=== PATIENT | male | born 1960 | race Caucasian/White ===

== ENCOUNTER → 2017-11-18 | Outpatient (CLI) | payer OTHER ==
--- NOTE | 2017-11-18 15:00 | Diagnostic Imaging Report ---
INDICATION: Mid left knee pain x1 week. COMPARISON: None. FINDINGS: Three radiographic views of the left knee were obtained and show no evidence of acute fracture or dislocation. Osseous structures are intact. Joint spaces are maintained. There is no large joint effusion. No unexpected radiopaque foreign bodies are seen. Small degenerative osteophytes are noted. IMPRESSION: 1. Small degenerative osteophytes of the left knee. Otherwise, unremarkable radiographic exam of the left knee. Dictated by: Dictated on workstation # [id number]
== END ==
LOC: RAD 13:58
PROVIDERS: ATTEND Internal Medicine
DX: M25.762 Osteophyte, left knee (principal)
CPT/HCPCS: 73562

== ENCOUNTER → 2018-07-06 | Outpatient (CLI) | payer OTHER ==
[2018-07-07 22:11] LABS: AMPHETAMINES URINE QUAL DS Negative; BARBITURATES URINE QUAL DS Negative; BENZODIAZEPINE URINE QUAL DS Negative
== END ==
LOC: LAB 16:14
PROVIDERS: ATTEND Nurse Practitioner
DX: Z51.81 Encounter for therapeutic drug level monitoring (principal); Z79.891 Long term (current) use of opiate analgesic
CPT/HCPCS: 36415; 80307

== ENCOUNTER → 2018-10-19 | Outpatient (CLI) | payer OTHER ==
[~2018-10-19] MED LIST: GADOBUTROL 10 MMOL/10 ML (GADAVIST) VIAL IV ONE
[2018-10-19 09:56] LABS: BUN/CREATININE RATIO 18; CREATININE SERUM 0.85 MG/DL (0.60-1.30); GFR ESTIMATED > 60
--- NOTE | 2018-10-19 11:40 | Diagnostic Imaging Report ---
PROCEDURE: MRI lumbar spine with and without contrast. TECHNIQUE: Multiplanar, multisequence MRI of the lumbar spine was performed with and without contrast. INDICATION: Back pain and bilateral leg pain. COMPARISON: There are no prior studies available for comparison. FINDINGS: The T2 sagittal images show narrowing and desiccation of the disc at the L5-S1 disc space. Furthermore, there is a disc bulge eccentric to the right at this level. The disc effaces the right ventral aspect but does not produce spinal stenosis. However, there is narrowing of the neuroforamen on the right due to degenerative disc and bony disease. There is moderate narrowing of the neuroforamen on the left at this level as well. At the L4-L5 level, there is a slight disc bulge centrally. The disc flattens the ventral aspect of the thecal sac and narrows the AP diameter to approximately 8.6 mm. The thecal sac itself is relatively slender. There is mild narrowing of the neuroforamen bilaterally at this level. At the L3-L4 level, there is also slight disc bulge centrally. The AP diameter of the thecal sac measures 10.9 mm. There is mild narrowing of the neuroforamen bilaterally at this level. At L1-L2 and L2-L3, there is no evidence for spinal stenosis or nerve root encroachment. There is no abnormal signal arising from the cord or other vertebral bodies to indicate an acute abnormality. There is no sign of a paraspinal mass. IMPRESSION: 1. There is degenerative disc and bony disease at L5-S1. While there is no evidence for central stenosis at this level, there is narrowing of the neuroforamen on the right and there may be encroachment of the exiting right nerve root at this level. There is also moderate narrowing of the neuroforamen on the left. 2. There is borderline trefoil stenosis at L4-L5. The narrowing of the AP diameter of the thecal sac is in part due to the relatively slender size of the thecal sac. There is mild narrowing of the neuroforamen bilaterally at this level. 3. There is no acute bony abnormality noted and there is no sign of a cord lesion. Dictated by: Dictated on workstation # [id number]
== END ==
LOC: RAD 08:37
PROVIDERS: ATTEND Student in an Organized Health Care Education/Training Program
DX: M51.16 Intervertebral disc disorders with radiculopathy, lumbar region (principal); M99.73 Connective tissue and disc stenosis of intervertebral foramina of lumbar region; M89.9 Disorder of bone, unspecified
CPT/HCPCS: 36415; 72158; 82565; 84520

== ENCOUNTER 2020-02-01 17:30 | Inpatient (IN) | payer BC, OTHER ==
[2020-02-01] VITALS (8 sets, daily range): BP systolic 114–141; BP diastolic 77–93
[~2020-02-01] VITALS: Ht 182 cm; Wt 96.5 kg
[2020-02-01] MEDS ORDERED: ASPIRIN 81 MG CHEW (CHILDREN'S ASA) PO ONE (17:45)
[2020-02-01 17:48] LABS: BASOPHILS % (AUTO) 0 % (0-10); EOSINOPHILS # (AUTO) 0.4 10^3/uL (0.0-0.3); EOSINOPHILS % (AUTO) 4 % (0-10); HEMATOCRIT 48 % (40-54); HEMOGLOBIN 16.4 G/DL (13.3-17.7); LYMPHOCYTES # (AUTO) 2.3 X 10^3 (1.0-4.0); LYMPHOCYTES % (AUTO) 25 % (12-44); MEAN CORPUSCULAR HEMOGLOBIN 30 PG (25-34); MEAN CORPUSCULAR HGB CONC 35 G/DL (32-36); MEAN CORPUSCULAR VOLUME 88 FL (80-99); MONOCYTES # (AUTO) 0.8 X 10^3 (0.0-1.0); MONOCYTES % (AUTO) 9 % (0-12); NEUTROPHILS # (AUTO) 5.8 X 10^3 (1.8-7.8); NEUTROPHILS % (AUTO) 62 % (42-75); PLATELET COUNT 220 10^3/uL (130-400); WHITE BLOOD COUNT 9.4 10^3/uL (4.3-11.0)
--- NOTE | 2020-02-01 17:53 | ED Chest Pain ---
General Chief Complaint: Chest Pain Stated Complaint: CHEST PAIN Nursing Triage Note: CHEST PAIN THAT RADIATES TO BILAT ARMS X3 DAYS. Nursing Sepsis Screen: No Definite Risk History of Present Illness Date Seen by Provider: Feb 01, 2020 Time Seen by Provider: 17:30 Initial Comments 59 year old male reports having mid sternal chest pain that began on the afternoon of 01/30/20. He had diaphoresis initially, none today. The pain has been intermittent, since then. No nausea or vomiting. No previous history of CAD or DM. No family history of CAD, but mother was Type 1 DM. He took 2 ASA 81 mg this afternoon when the pain returned. His only medication is Lisinopril, he has not taken it today, takes it every evening. He rates the pain as a 2/10 currently, but when it is bad, he has radiation to both shoulders and arms to fingers. 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 NTG SL WIRE MILL OPERATOR: No Associated Symptoms: diaphoresis; No heartburn, No nausea/vomiting, No shortness of breath Allergies and Home Medications Allergies Coded Allergies: No Known Drug Allergies (Unverified , 10/19/18) Patient Home Medication List Home Medication List Reviewed: Yes Review of Systems Review of Systems Constitutional: see HPI, weakness Cardiovascular: See HPI, Chest Pain Gastrointestinal: No Symptoms Reported, See HPI; Denies Nausea Skin: no symptoms reported, see HPI All Other Systems Reviewed Negative Unless Noted: Yes Past Wkmgbtn-Vfxede-Easmhr Hx Past Med/Social Hx: Reviewed Nursing Past Med/Soc Hx Patient Social History Alcohol Use: Denies Use Recreational Drug Use: No Smoking Status: Current Everyday Smoker Recent Foreign Travel: No Contact w/Someone Who Travel: No Recent Infectious Disease Expo: No Recent Hopitalizations: No Seasonal Allergies Seasonal Allergies: No Past Medical History Respiratory: No Cardiac: Yes Hypertension Neurological: No Gastrointestinal: No Musculoskeletal: No Endocrine: No HEENT: No Cancer: No Integumentary: No Physical Exam Vital Signs Vital Signs - First Documented 02/01/20 17:30 O2 Flow Rate 2.00 Capillary Refill : Less Than 3 Seconds Height, Weight, BMI Height: '" Weight: lbs. oz. kg; 29.00 BMI Method: General Appearance: Anxious, Mild Distress HEENT: PERRL/EOMI, TMs Normal, Normal ENT Inspection, Pharynx Normal Neck: Full Range of Motion, Normal Inspection, Non Tender, Supple Respiratory: Chest Non Tender, Lungs Clear, Normal Breath Sounds Cardiovascular: Regular Rate, Rhythm, No Edema, No Murmur, Normal Peripheral Pulses Gastrointestinal: Normal Bowel Sounds, Non Tender, Soft Extremity: Normal Capillary Refill, Normal Inspection, Normal Range of Motion, Non Tender Neurologic/Psychiatric: Alert, Oriented x3, No Motor/Sensory Deficits, Normal Mood/Affect Skin: Normal Color, Warm/Dry, Erythema (face) Progress/Results/Core Measures Results/Orders Lab Results Laboratory Tests Test 02/01/20 17:40 02/01/20 18:00 Range/Units White Blood Count 9.4 4.3-11.0 10^3/uL Red Blood Count 5.40 4.35-5.85 10^6/uL Hemoglobin 16.4 13.3-17.7 G/DL Hematocrit 48 40-54 % Mean Corpuscular Volume 88 80-99 FL Mean Corpuscular Hemoglobin 30 25-34 PG Mean Corpuscular Hemoglobin Concent 35 32-36 G/DL Red Cell Distribution Width 13.0 10.0-14.5 % Platelet Count 220 130-400 10^3/uL Mean Platelet Volume 10.0 7.4-10.4 FL Neutrophils (%) (Auto) 62 42-75 % Lymphocytes (%) (Auto) 25 12-44 % Monocytes (%) (Auto) 9 0-12 % Eosinophils (%) (Auto) 4 0-10 % Basophils (%) (Auto) 0 0-10 % Neutrophils # (Auto) 5.8 1.8-7.8 X 10^3 Lymphocytes # (Auto) 2.3 1.0-4.0 X 10^3 Monocytes # (Auto) 0.8 0.0-1.0 X 10^3 Eosinophils # (Auto) 0.4 H 0.0-0.3 10^3/uL Basophils # (Auto) 0.0 0.0-0.1 10^3/uL Prothrombin Time 15.7 H 12.2-14.7 SEC INR Comment 1.2 0.8-1.4 Activated Partial Thromboplast Time 28 24-35 SEC Sodium Level 138 135-145 MMOL/L Potassium Level 4.0 3.6-5.0 MMOL/L Chloride Level 107 98-107 MMOL/L Carbon Dioxide Level 25 21-32 MMOL/L Anion Gap 6 5-14 MMOL/L Blood Urea Nitrogen 14 7-18 MG/DL Creatinine 0.83 0.60-1.30 MG/DL Estimat Glomerular Filtration Rate > 60 BUN/Creatinine Ratio 17 Glucose Level 118 H 70-105 MG/DL Calcium Level 8.8 8.5-10.1 MG/DL Corrected Calcium 9.0 8.5-10.1 MG/DL Magnesium Level 1.8 1.6-2.4 MG/DL Total Bilirubin 0.2 0.1-1.0 MG/DL Aspartate Amino Transf (AST/SGOT) 32 5-34 U/L Alanine Aminotransferase (ALT/SGPT) 23 0-55 U/L Alkaline Phosphatase 47 40-136 U/L Myoglobin 162.6 H 10.0-92.0 NG/ML Troponin I 2.738 *H <0.028 NG/ML Total Protein 6.0 L 6.4-8.2 GM/DL Albumin 3.8 3.2-4.5 GM/DL My Orders Orders - DALIA REDDING Cbc With Automated Diff (02/01/20 17:34) Magnesium (02/01/20 17:34) Chest 1 View, Ap/Pa Only (02/01/20 17:34) Ekg Tracing (02/01/20 17:34) Comprehensive Metabolic Panel (02/01/20 17:34) Myoglobin Serum (02/01/20 17:34) Protime With Inr (02/01/20 17:34) Partial Thromboplastin Time (02/01/20 17:34) O2 (02/01/20 17:34) Monitor-Rhythm Ecg Trace Only (02/01/20 17:34) Ed Iv/Invasive Line Start (02/01/20 17:34) Troponin I (02/01/20 17:34) Aspirin Chewable Tablet (Baby Aspirin Ch (02/01/20 17:45) Metoprolol Tartrate Injection (Lopressor (02/01/20 18:15) Nitroglycerin 0.4 Mg Btl 25's (Nitrostat (02/01/20 18:15) Nitroglycerin 0.4 Mg Btl 25's (Nitrostat (02/01/20 17:59) Morphine Injection (Morphine Injection (02/01/20 18:17) Morphine Injection (Morphine Injection (02/01/20 18:13) Ns Iv 1000 Ml (Sodium Chloride 0.9%) (02/01/20 18:40) Morphine Injection (Morphine Injection (02/01/20 18:46) Ns Iv 1000 Ml (Sodium Chloride 0.9%) (02/01/20 19:00) Lidocaine 1% Inj 20 Ml (Xylocaine 1% Inj (02/01/20 18:56) Midazolam Injection (Versed Injection) (02/01/20 18:56) Fentanyl Injection (Sublimaze Injection (02/01/20 18:56) Heparin (Data Conversion Developer) (Heparin (Data Conversion Developer)) (02/01/20 18:57) Heparin (Bolus Per Protocol) (Heparin (B (02/01/20 19:00) Methylprednisolone Sod Succ (Solu-Medrol (02/01/20 19:07) Medications Given in ED Current Medications Medications Dose Ordered Sig/Jennifer Route Start Time Stop Time Status Last Admin Dose Admin Aspirin 324 mg ONCE ONCE PO 02/01/20 17:45 02/01/20 17:46 DC 02/01/20 17:46 324 MG Methylprednisolone Sodium Succinate 125 mg ONCE ONCE IVP 02/01/20 19:15 02/01/20 19:16 DC 02/01/20 19:18 125 MG Nitroglycerin 1 BOTTLE ONCE ONCE SL 02/01/20 18:15 02/01/20 18:16 DC 02/01/20 18:05 0.4 MG Vital Signs/I&O 02/01/20 02/01/20 02/01/20 17:30 17:30 17:30 Temp 36.8 Pulse 77 Resp 16 B/P (MAP) 176/103 (127) Pulse Ox 98 95 O2 Delivery Room Air Room Air Nasal Cannula O2 Flow Rate 2.00 Blood Pressure Mean: 127 Progress Progress Note : Time: 17:30 Progress Note Patient seen and evaluated, will obtain EKG, labs and chest x-ray. Aspirin 324 mg orally. No pain at this time. 1800 pain 7/10. nitroglycerin 0.4 mg SL times one. O2 1 L per NC. 1815 repeat nitroglycerin 0.[address] Phipps, awaiting labs. 1820 Morphine 2 mg IV. No n/v 1829 pain down to 4-04/08 1835 Pain has returned and worsened 07/09 will repeat 4 mg of Morphine, B/P 114/70, will hold Nitro. 1839 laborer powerhouse called, Dr. Phipps on the way. 1849 Pain controlled 02/[address] Phipps here to see patient. 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 Initial ECG Impression Date: Feb 01, 2020 Initial ECG Impression Time: 17:34 Initial ECG Rate: 73 Initial ECG Rhythm: Normal Sinus Initial ECG Intervals: Normal Initial ECG Intervals MI 136, QRSD 92, QT 392, QTC 432. [place] P 47, QRS -17, T1. Initial ECG Impression: Nonspecific Changes Initial ECG Comparisson: No Previous ECG Available, Unchanged Comment Reviewed with Dr. Mckeon, recommended a 15 lead EKG. EKG : EKG Time: 17:50 Rate: 75 Rhythm: Normal Sinus Intervals: Normal Intervals MI 132; QRSD 90, QT 388, QTc 434 [place] P 43, QRS 5, T 41 Diagnostic Imaging Diagonstic Imaging: CT Plain Films/CT/US/NM/MRI: chest Comments NAME: NIKOLAI FARRIS [facility] REC#: [id number] PT STATUS: REG ER : 1960 PHYSICIAN: DALIA REDDING ADMIT DATE: 02/01/20/ER Draft Date of Exam:02/01/20 CHEST 1 VIEW, AP/PA ONLY INDICATION: Chest pain. FINDINGS: Single AP view of the chest is obtained. Heart size and pulmonary vascularity are within normal limits. There is no evidence of pneumothorax or consolidation. There appears to be calcification in the right hilum and lower lobe. IMPRESSION: Probable granulomatous residua in the right hemithorax. Otherwise, no acute abnormality is identified. Dictated on workstation # [id number] Dict: 02/01/201818 Trans: 02/01/201819 [id number] Interpreted by: ARSEN JOHNS MD Electronically signed by: Departure Impression Primary Impression: Chest pain Qualified Codes: R07.89 - Other chest pain Additional Impression: Acute myocardial infarction Qualified Codes: I21.4 - Non-ST elevation (NSTEMI) myocardial infarction Disposition: ADMITTED INPATIENT Condition: Critical Departure-Patient Inst. Referrals: ZENOBIA COSTELLO MD (PCP/Family) Primary Care Physician Copy Copies To 1: ZENOBIA COSTELLO MD Copies To 2: OMEGA PHIPPS MD FACP [facility] DALIA REDDING Feb 01, 2020 17:53
[2020-02-01] MEDS ORDERED: NITROGLYCERIN 0.4 MG SL TABS BTL 25'S SL ONE ×2 (17:59→18:15)
[2020-02-01] MEDS ORDERED: morphine INJ 10 MG/ML 1ML (SYR OR VIAL) ONE (18:13)
[2020-02-01] MEDS ORDERED: meTOprolol 5 MG/5 ML (LOPRESSOR) VIAL IV ONE (18:15)
[2020-02-01] MEDS ORDERED: morphine INJ 10 MG/ML 1ML (SYR OR VIAL) IVP STA ×3 (18:17→19:20)
--- NOTE | 2020-02-01 18:20 | Diagnostic Imaging Report ---
INDICATION: Chest pain. FINDINGS: Single AP view of the chest is obtained. Heart size and pulmonary vascularity are within normal limits. There is no evidence of pneumothorax or consolidation. There appears to be calcification in the right hilum and lower lobe. IMPRESSION: Probable granulomatous residua in the right hemithorax. Otherwise, no acute abnormality is identified. Dictated by: Dictated on workstation # [id number]
[2020-02-01 18:21] LABS: INR 1.2 (0.8-1.4); PROTHROMBIN TIME PATIENT 15.7 SEC (12.2-14.7)
[2020-02-01 18:30] LABS: ALANINE AMINOTRANSFERASE 23 U/L (0-55); ALBUMIN 3.8 GM/DL (3.2-4.5); ALKALINE PHOSPHATASE 47 U/L (40-136); BILIRUBIN,TOTAL 0.2 MG/DL (0.1-1.0); BUN/CREATININE RATIO 17; CALCIUM 8.8 MG/DL (8.5-10.1); CARBON DIOXIDE 25 MMOL/L (21-32); CHLORIDE 107 MMOL/L (98-107); CREATININE SERUM 0.83 MG/DL (0.60-1.30); GFR ESTIMATED > 60; GLUCOSE 118 MG/DL (70-105); MAGNESIUM 1.8 MG/DL (1.6-2.4); SODIUM 138 MMOL/L (135-145)
[2020-02-01] MEDS ORDERED: NS IV 1000 ML 1,000 ML ONE (18:40)
--- NOTE | 2020-02-01 18:42 | NUR ---
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
--- NOTE | 2020-02-01 18:45 | NUR ---
2ND IV INSERTED 20 GA R HAND
[2020-02-01] MEDS ORDERED: fentaNYL INJECTION 100 MCG/2 ML AMP ONE (18:56)
[2020-02-01] MEDS ORDERED: MIDAZOLAM 5 MG/5 ML (VERSED) VIAL ONE (18:56)
[2020-02-01] MEDS ORDERED: LIDOCAINE 1% INJ 20 ML 20 ML VIAL ONE (18:56)
[2020-02-01] MEDS ORDERED: HEParin (CATH LAB) 2,000 ML IV ONE (18:57)
[2020-02-01] MEDS ORDERED: HEParin 1000 UNIT/ML (10ML VIAL) FOR BOLUS ONE (19:00)
[2020-02-01] MEDS ORDERED: NS IV 1000 ML 1,000 ML IV SCH ×2 (19:00→20:20)
[2020-02-01] MEDS ORDERED: methylPREDNISolone 125 MG (Solu-MEDROL) VIAL ONE (19:07)
[2020-02-01] MEDS ORDERED: HEParin 1000 UNIT/ML (10ML VIAL) FOR BOLUS IV SCH (19:15)
[2020-02-01] MEDS ORDERED: methylPREDNISolone 125 MG (Solu-MEDROL) VIAL IVP ONE (19:15)
--- NOTE | 2020-02-01 19:33 | Cardiology History & Physical ---
HPI-Cardiology Cardiology H&P Date of Admission 02/01/20 Primary Care Physician Jamshid Thomson MD Attending Physician Amanda Phipps MD, MA FACP [facility] CCDS Consulting Physician LONG CC: Chest pain HPI; 59 yo man with chest pain: sarted on 01/30/20, off an on, lasting several hours at a time, mild to severe, sometimes associated with diaphoresis or nausea, mid sternal, several times a day, w/o aggravating factors, helped with iv morphine in the ER, not experienced before, radiating to both shoulders. Denies shortness of breath or palp or syncope or leg swelling Chronic, bilat leg weakness and numbness and paresthesia Chronic low back pain Review of Systems-Cardiology Review of Systems Constitutional: malaise; No weight loss, No weight gain Eyes: No vision change Ears/Nose/Throat: No ear discharge, No nasal drainage, No recent hearing loss Respiratory: As described under HPI Cardiovascular: As described under HPI Gastrointestinal: No diarrhea; nausea; No vomiting Genitourinary: No dysuria, No hematuria, No urine frequency changes Musculoskeletal: As describe under HPI Skin: No rash, No ulcerations Psychiatric/Neurological: other (moves all limbs equally, loss of proprioception and light touch on the outer aspects of thighs and legs); No seizure Hematologic: No bleeding abnormalities All Other Systems Reviewed Negative Unless Noted: Yes LQU-Ejjxoy-Sexoar Hx Patient Social History Alcohol Use: Denies Use Recreational Drug Use: No Smoking Status: Current Everyday Smoker Recent Foreign Travel: No Recent Infectious Disease Expo: No Past Medical History PMH As described under Assessment. Allergies and Home Medications Allergies Coded Allergies: No Known Drug Allergies (Unverified , 10/19/18) Patient Home Medication List Home Medication List Reviewed: Yes Physical Exam-Cardiology Physical Exam Vital Signs/I&O 02/01/20 02/01/20 02/01/20 17:30 17:30 17:30 Temp 36.8 Pulse 77 Resp 16 B/P (MAP) 176/103 (127) Pulse Ox 98 95 O2 Delivery Room Air Room Air Nasal Cannula O2 Flow Rate 2.00 Capillary Refill : Less Than 3 Seconds Constitutional: AAO x 3, well-developed, well-nourished, other (diaphoretic) HEENT: PERRL, EOMI; No xanthelasmas are seen Neck: carotid pulses are 2 + bilaterally, with good upstrokes Respiratory: No accessory muscle use; other (good bilat air entry) Cardiovascular: regular rate-rhythm, S1 and S2, systolic murmur (soft ADAN at card base) Gastrointestinal: No tender; soft; No guarding, No rebound; audible bowel sounds Extremities: No clubbing, No cyanosis, No significant edema Neurologic/Psychiatric: other (moves all limbs equally; loss of proprioception and light touch on the outer and posterior and anterior aspects of both thighs and legs) Skin: No rash, No ulcerations Data Review Labs Laboratory Tests 02/01/20 17:40: White Blood Count 9.4, Red Blood Count 5.40, Hemoglobin 16.4, Hematocrit 48, Mean Corpuscular Volume 88, Mean Corpuscular Hemoglobin 30, Mean Corpuscular Hemoglobin Concent 35, Red Cell Distribution Width 13.0, Platelet Count 220, Mean Platelet Volume 10.0, Neutrophils (%) (Auto) 62, Lymphocytes (%) (Auto) 25, Monocytes (%) (Auto) 9, Eosinophils (%) (Auto) 4, Basophils (%) (Auto) 0, Neutrophils # (Auto) 5.8, Lymphocytes # (Auto) 2.3, Monocytes # (Auto) 0.8, Eosinophils # (Auto) 0.4H, Basophils # (Auto) 0.0 02/01/20 18:00: Prothrombin Time 15.7H, INR Comment 1.2, Activated Partial Thromboplast Time 28, Sodium Level 138, Potassium Level 4.0, Chloride Level 107, Carbon Dioxide Level 25, Anion Gap 6, Blood Urea Nitrogen 14, Creatinine 0.83, Estimat Glomerular Filtration Rate > 60, BUN/Creatinine Ratio 17, Glucose Level 118H, Calcium Level 8.8, Corrected Calcium 9.0, Magnesium Level 1.8, Total Bilirubin 0.2, Aspartate Amino Transf (AST/SGOT) 32, Alanine Aminotransferase (ALT/SGPT) 23, Alkaline Phosphatase 47, Myoglobin 162.6H, Troponin I 2.738*H, Total Protein 6.0L, Albumin 3.8 Laboratory Tests 02/01/20 17:40 02/01/20 18:00 A/P-Cardiology Assessment/Admission Diagnosis Ac NSTEMI H/o hypertension H/o hyperlipidemia Chronic back pain, s/p lumbosacral surgery in the with subsequent loss of sensations in the legs Admission Status: Inpatient Order (span 2 midnights) Reason for Inpatient Admission: TX Discussion and Recomendations * Emergency card cath, given continuing symptoms despite treatment * Rationale, procedure, risks, benefits, potential complications, alternatives reviewed (of cath and possible ad hoc PCI). He provides informed consent Clinical Quality Measures AMI/AHF: ASA po Prior to arrival: AMANDA Hackett MD FACP FAC CCDS Feb 01, 2020 19:33
--- NOTE | 2020-02-01 20:26 | Cardiac Procedure Note-CS/ASA ---
Pre-Procedure Note Pre-Op Procedure Note H&P Reviewed The H&P was reviewed, patient examined and no changes noted. Date H&P Reviewed: Feb 01, 2020 Time H&P Reviewed: 07:15 Conscious Sedation Pre-Proced Time 07:15 ASA Score 4 For ASA 3 and 4: Consider anesthesia and medical clearance. Also, for patients with a history of failed moderate sedation consider anesthesia. Airway Lungs Heart ASA score ASA 1: a normal healthy patient ASA 2: a patient with a mild systemic disease (mid diabetes, controlled hypertension, obesity ASA 3: a patient with a severe systemic disease that limits activity (angina, COPD, prior Myocardial infarction) ASA 4: a patient with an incapacitating disease that is a constant threat to life (CHF, renal failure) ASA 5: a moribund patient not expected to survive 24 hrs. (ruptured aneurysm) ASA 6: a declared brain- patient whose organs are being harvested. For emergent operations, add the letter E after the classification Mallampati Classification Grade 2 Sedation Plan Analgesia, Amnesia, Plan communicated to team members, Discussed options with patient/fam, Discussed risks with patient/fam The patient is an appropriate candidate to undergo the planned procedure, sedation, and anesthesia. The patient immediately re-assessed prior to indication. OMEGA FITCH MD FACP FAC CCDS Feb 01, 2020 20:26
[2020-02-01] MEDS ORDERED: PATIENT MAY USE OWN MEDS, ALL PO SCH (20:30)
[2020-02-01] MEDS ORDERED: FAMOTIDINE 20 MG (PEPCID) TABLET PO PRN (20:30)
[2020-02-01] MEDS ORDERED: ACETAMINOPHEN 325 MG TABLET PO PRN (20:30)
[2020-02-02] VITALS (11 sets, daily range): BP systolic 112–140; BP diastolic 66–83
--- NOTE | 2020-02-02 00:51 | CARDIAC CATHETERIZATION ---
DATE OF SERVICE: 02/01/2020 CARDIAC CATHETERIZATION AND CORONARY INTERVENTION REPORT INDICATION: The patient is a 59-year-old man with a history of hypertension and hyperlipidemia, who presented with acute non-ST elevation myocardial infarction. Symptoms continued despite medical therapy. Emergency cardiac catheterization was carried out after having obtained an informed consent for cardiac catheterization and possible ad hoc coronary intervention. DESCRIPTION OF PROCEDURE: He was brought to the cardiac catheterization laboratory. He was pretreated with intravenous Solu-Medrol because he had a history of contrast allergy. We prepared the right groin and draped it in the usual sterile fashion. Lidocaine 1% was used for local anesthesia. Modified Seldinger technique was used to advance a 6-Monegasque sheath into the right femoral artery. We used a 6-Monegasque JR4 guide catheter to carry out left heart catheterization and left ventricular angiography. The 6-Monegasque JR catheter was then pulled back through the ascending aorta and selective right coronary artery angiography was performed. This catheter was removed. We then advanced a 6-Monegasque JL4 guide catheter to engage the left coronary artery and diagnostic coronary angiography was performed. This was followed by percutaneous intervention to the first obtuse marginal branch, left circumflex artery as detailed below. PERCUTANEOUS INTERVENTION TO THE OBTUSE MARGINAL OF THE LEFT CIRCUMFLEX: Following completion of the diagnostic procedure, we used a 6-Monegasque JL4 guide catheter to advance a ChoICE floppy wire across a long lesion in the first obtuse marginal branch of the left circumflex, including 95% stenosis in its mid portion. The tip of it was placed in the distal vessel. Balloon angioplasty was carried out with Emerge 2.0 x 30 mm balloon and the lesions were then stented with Xience Christina 2.5 x 38 mm stent deployed at 12 atmospheres. Subsequent angiography revealed 0% residual stenosis at the previous sites of up to 95% stenosis. Flow throughout the vessel is normal. Angioplasty equipment was then removed. Angiography of the right femoral artery was carried out through the sheath. Mynx was used to achieve hemostasis. The patient had received 5000 units of intravenous heparin in the emergency room. In the cardiac catheterization laboratory, he received an additional 3000 units of intravenous heparin, a double bolus of Integrilin. He had received aspirin 324 mg in the emergency room. He received Plavix 600 mg in the cardiac catheterization laboratory. HEMODYNAMICS: Left ventricular end-diastolic pressure following coronary angiography was 23 mmHg. There was no significant pressure gradient on pullback across the aortic valve. Ascending aortic pressure was 121/79 with a mean of 88 mmHg. CORONARY ANGIOGRAPHY: Left main coronary artery does not exhibit significant obstructive disease. Left anterior descending artery has diffuse moderate disease, including up to 50% stenosis in its proximal midportion. The ramus intermedius artery had approximately 50% ostial and proximal stenosis. Left circumflex artery is dominant. First obtuse marginal branch had a long lesion of up to 95% stenosis in its proximal and mid portions to which successful stenting was carried out with Xience Christina 2.5 x 38 mm stent with reduction of stenosis to 0% residual. Right coronary artery is small and nondominant and does not exhibit significant stenoses. LEFT VENTRICULAR ANGIOGRAPHY: Left ventricular angiography was carried out in the right anterior oblique projection. Global left ventricular systolic function normal. No regional wall motion marked is seen. Left ventricular ejection fraction approximately 60%. CONCLUSIONS: 1. Coronary artery disease primarily consisting of a long, up to 95% stenosis in the first obtuse marginal of the left circumflex artery to which successful stenting was carried out with Xience Christina 2.5 x 38 mm stent. The rest of the coronary vessels have diffuse disease. Left anterior descending artery has up to 50% proximal and mid vessel stenosis. Ramus intermedius has 50% ostial and proximal stenosis. 2. Normal global left ventricular systolic function with ejection fraction approximately 60%. 3. Elevated left ventricular end-diastolic pressure. DISCUSSION AND RECOMMENDATIONS: Dual antiplatelet therapy is being continued. Beta blockers and statins will also be used as tolerated. Job ID: [id number] DocumentID: [id number] Dictated Date: 02/01/2020 20:17:29 Emergency Crew Supervisor Date: 02/02/2020 00:50:25 Dictated By: OMEGA FITCH MD, MA, FACP, FACC, MTDD
[2020-02-02 03:27] LABS: BASOPHILS % (AUTO) 0 % (0-10); EOSINOPHILS % (AUTO) 0 % (0-10); HEMATOCRIT 48 % (40-54); HEMOGLOBIN 16.1 G/DL (13.3-17.7); LYMPHOCYTES # (AUTO) 0.9 X 10^3 (1.0-4.0); LYMPHOCYTES % (AUTO) 9 % (12-44); MEAN CORPUSCULAR HEMOGLOBIN 30 PG (25-34); MEAN CORPUSCULAR HGB CONC 34 G/DL (32-36); MEAN CORPUSCULAR VOLUME 89 FL (80-99); MEAN PLATELET VOLUME 10.1 FL (7.4-10.4); MONOCYTES # (AUTO) 0.2 X 10^3 (0.0-1.0); MONOCYTES % (AUTO) 2 % (0-12); NEUTROPHILS # (AUTO) 9.2 X 10^3 (1.8-7.8); NEUTROPHILS % (AUTO) 89 % (42-75); PLATELET COUNT 218 10^3/uL (130-400); RED CELL DISTRIBUTION WIDTH 12.9 % (10.0-14.5); WHITE BLOOD COUNT 10.3 10^3/uL (4.3-11.0)
[2020-02-02 03:44] LABS: ALANINE AMINOTRANSFERASE 29 U/L (0-55); ALBUMIN 3.9 GM/DL (3.2-4.5); ALKALINE PHOSPHATASE 49 U/L (40-136); BILIRUBIN,TOTAL 0.4 MG/DL (0.1-1.0); BUN/CREATININE RATIO 14; CALCIUM 9.5 MG/DL (8.5-10.1); CARBON DIOXIDE 22 MMOL/L (21-32); CHLORIDE 107 MMOL/L (98-107); CHOLESTEROL 199 MG/DL (< 200); CREATININE SERUM 0.86 MG/DL (0.60-1.30); GFR ESTIMATED > 60; GLUCOSE 164 MG/DL (70-105); HDL CHOLESTEROL 41 MG/DL (40-60); MAGNESIUM 1.9 MG/DL (1.6-2.4); PHOSPHORUS 2.2 MG/DL (2.3-4.7); POTASSIUM 4.4 MMOL/L (3.6-5.0); SODIUM 139 MMOL/L (135-145); TOTAL PROTEIN 6.5 GM/DL (6.4-8.2); TRIGLYCERIDES 76 MG/DL (<150); VLDL CHOLESTEROL 15 MG/DL (5-40)
[2020-02-02 04:04] LABS: BAND NEUTROPHILS 0 %; EOSINOPHILS % (MANUAL) 0 %; LYMPHOCYTES % (MANUAL) 10 %; MONOCYTES % (MANUAL) 0 %; NEUTROPHILS % (MANUAL) 86 %; RBC MORPH NORMAL; REACTIVE LYMPHOCYTES 4 %
[2020-02-02] MEDS ORDERED: CATHETER FLUSH 10 ML SYR IV PRN (07:15)
[2020-02-02] MEDS ORDERED: CLOPIDOGREL 75 MG (PLAVIX) TABLET PO SCH (09:00)
[2020-02-02] MEDS ORDERED: ASPIRIN 81 MG CHEW (CHILDREN'S ASA) PO SCH (09:00)
--- NOTE | 2020-02-02 09:57 | Progress Note - Cardiology ---
Cardiology SOAP Progress Note Subjective: Lying in bed. Denies any c/o CP, dyspnea, palpitations, syncope, near syncope. No c/o right groin discomfort. Objective: I&O/Vital Signs 02/02/20 02/02/20 02/02/20 02/02/20 05:00 06:00 07:00 07:00 Temp 36.3 Pulse 74 72 67 Resp 18 16 B/P (MAP) 112/72 (85) 134/76 (95) Pulse Ox 94 95 O2 Delivery Room Air Room Air 02/02/20 02/02/20 02/02/20 02/02/20 07:00 08:00 08:00 09:00 Pulse 75 70 66 Resp 24 15 16 B/P (MAP) 130/81 (97) 122/70 (87) 124/68 (86) Pulse Ox 94 91 95 92 O2 Delivery Room Air Room Air Room Air Room Air 02/02/20 02/02/20 02/02/20 02/02/20 10:00 11:00 12:00 12:00 Pulse 68 65 68 Resp 16 17 12 B/P (MAP) Pulse Ox 95 O2 Delivery Room Air Room Air Room Air Room Air 02/02/20 02/02/20 13:00 16:00 Pulse 64 Pulse Ox 95 O2 Delivery Room Air 02/02/20 00:00 Intake Total 100 ml Output Total 550 ml Balance -450 ml Side: right Groin site without hematoma: Yes Condition: DP/PT pulses palpable, extremity w/d/p Bruising: mild bruising Constitutional: AAO x 3, well-developed, well-nourished, other (diaphoretic) Respiratory: No accessory muscle use; other (good bilat air entry) Cardiovascular: regular rate-rhythm, S1 and S2, systolic murmur (soft ADAN at card base) Gastrointestional: No tender; soft; No guarding, No rebound; audible bowel sounds Extremities: No clubbing, No cyanosis, No significant edema Neurologic/Psychiatric: other (moves all limbs equally; loss of proprioception and light touch on the outer and posterior and anterior aspects of both thighs and legs) Skin: No rash, No ulcerations Results/Procedures: Labs Laboratory Tests 02/01/20 17:40: White Blood Count 9.4, Red Blood Count 5.40, Hemoglobin 16.4, Hematocrit 48, Mean Corpuscular Volume 88, Mean Corpuscular Hemoglobin 30, Mean Corpuscular Hemoglobin Concent 35, Red Cell Distribution Width 13.0, Platelet Count 220, Mean Platelet Volume 10.0, Neutrophils (%) (Auto) 62, Lymphocytes (%) (Auto) 25, Monocytes (%) (Auto) 9, Eosinophils (%) (Auto) 4, Basophils (%) (Auto) 0, Neutrophils # (Auto) 5.8, Lymphocytes # (Auto) 2.3, Monocytes # (Auto) 0.8, Eosinophils # (Auto) 0.4H, Basophils # (Auto) 0.0 02/01/20 18:00: Prothrombin Time 15.7H, INR Comment 1.2, Activated Partial Thromboplast Time 28, Sodium Level 138, Potassium Level 4.0, Chloride Level 107, Carbon Dioxide Level 25, Anion Gap 6, Blood Urea Nitrogen 14, Creatinine 0.83, Estimat Glomerular Filtration Rate > 60, BUN/Creatinine Ratio 17, Glucose Level 118H, Calcium Level 8.8, Corrected Calcium 9.0, Magnesium Level 1.8, Total Bilirubin 0.2, Aspartate Amino Transf (AST/SGOT) 32, Alanine Aminotransferase (ALT/SGPT) 23, Alkaline Phosphatase 47, Myoglobin 162.6H, Troponin I 2.738*H, Total Protein 6.0L, Albumin 3.8 02/02/20 02:58: White Blood Count 10.3, Red Blood Count 5.37, Hemoglobin 16.1, Hematocrit 48, Mean Corpuscular Volume 89, Mean Corpuscular Hemoglobin 30, Mean Corpuscular Hemoglobin Concent 34, Red Cell Distribution Width 12.9, Platelet Count 218, Mean Platelet Volume 10.1, Neutrophils (%) (Auto) 89H, Lymphocytes (%) (Auto) 9L , Monocytes (%) (Auto) 2, Eosinophils (%) (Auto) 0, Basophils (%) (Auto) 0, Neutrophils # (Auto) 9.2H, Lymphocytes # (Auto) 0.9L, Monocytes # (Auto) 0.2, Eosinophils # (Auto) 0.0, Basophils # (Auto) 0.0, Sodium Level 139, Potassium Level 4.4, Chloride Level 107, Carbon Dioxide Level 22, Anion Gap 10, Blood Urea Nitrogen 12, Creatinine 0.86, Estimat Glomerular Filtration Rate > 60, BUN/Creatinine Ratio 14, Glucose Level 164H, Calcium Level 9.5, Corrected Calcium 9.6, Magnesium Level 1.9, Total Bilirubin 0.4, Aspartate Amino Transf (AST/SGOT) 49H, Alanine Aminotransferase (ALT/SGPT) 29, Alkaline Phosphatase 49, Total Protein 6.5, Albumin 3.9, Neutrophils % (Manual) 86, Lymphocytes % (Manual) 10, Monocytes % (Manual) 0, Eosinophils % (Manual) 0, Band Neutrophils 0, Reactive Lymphocytes 4, Blood Morphology Comment NORMAL, Phosphorus Level 2.2L, Triglycerides Level 76, Cholesterol Level 199, LDL Cholesterol Direct 171H , VLDL Cholesterol 15, HDL Cholesterol 41, Thyroid Stimulating Hormone (TSH) 0.66 Procedures S/P cardiac cath with successful intervention on 02-01-2020. Please refer to cardiac cath report for details. A/P: Assessment: Ac NSTEMI Coronary artery disease primarily consisting of a long up to 95% stenosis in the first obtuse marginal of the left circumflex artery to which successful stenting was carried out with Xience Christina 2.5 x 38 mm stent. The rest of the coronary vessels have diffuse disease. Left anterior descending artery has up to 50% proximal and mid vessel stenosis. Ramus intermedius has 50% ostial and proximal stenosis. Normal global left ventricular systolic function with ejection fraction approximately 60%. Elevated left ventricular end-diastolic pressure. Per cardiac cath of 02-01-2020 H/o hypertension H/o hyperlipidemia Chronic back pain, s/p lumbosacral surgery in the with subsequent loss of sensations in the legs Plan: * S/P emergent cardiac cath with successful intervention on 02-01-2020 * Continue current medications including ASA, Plavix, statin, BB * Discussed medications and rationale * Advised cardiac rehab - agreeable - will refer at discharge Clinical Quality Measures AMI/AHF: ASA po Prior to arrival: RON Short Feb 02, 2020 09:57
[2020-02-02] MEDS ORDERED: NICOTINE 21 MG (NICODERM) PATCH TD SCH (11:45)
--- NOTE | 2020-02-02 13:22 | Progress Note - Cardiology ---
Cardiology SOAP Progress Note Subjective: No cp No palp or syncope or shortness of breath Chronic low back pain Chronic numbness of both legs No n/v/d Objective: I&O/Vital Signs 02/02/20 02/02/20 02/02/20 02/02/20 02:00 03:00 03:04 04:00 Pulse 67 78 65 Resp 18 27 17 B/P (MAP) 125/74 (91) 118/75 (89) 119/72 (88) Pulse Ox 92 92 95 93 O2 Delivery Room Air Room Air Room Air Room Air 02/02/20 02/02/20 02/02/20 02/02/20 05:00 06:00 07:00 07:00 Temp 36.3 Pulse 74 72 67 Resp 18 16 B/P (MAP) 112/72 (85) 134/76 (95) Pulse Ox 94 95 O2 Delivery Room Air Room Air 02/02/20 02/02/20 02/02/20 02/02/20 07:00 08:00 08:00 09:00 Pulse 75 70 66 Resp 24 15 16 B/P (MAP) 130/81 (97) 122/70 (87) 124/68 (86) Pulse Ox 94 91 95 92 O2 Delivery Room Air Room Air Room Air Room Air 02/02/20 02/02/20 02/02/20 10:00 11:00 12:00 Pulse 68 65 68 Resp 16 17 12 B/P (MAP) O2 Delivery Room Air Room Air Room Air 02/02/20 00:00 Intake Total 100 ml Output Total 550 ml Balance -450 ml Side: right Groin site without hematoma: Yes Condition: DP/PT pulses palpable, extremity w/d/p Bruising: mild bruising Constitutional: AAO x 3, well-developed, well-nourished, other (diaphoretic) Respiratory: No accessory muscle use; other (good bilat air entry) Cardiovascular: regular rate-rhythm, S1 and S2, systolic murmur (soft ADAN at card base) Gastrointestional: No tender; soft; No guarding, No rebound; audible bowel so unds Extremities: No clubbing, No cyanosis, No significant edema Neurologic/Psychiatric: other (moves all limbs equally; loss of proprioception and light touch on the outer and posterior and anterior aspects of both thighs and legs) Skin: No rash, No ulcerations Results/Procedures: Labs Laboratory Tests 02/01/20 17:40: White Blood Count 9.4, Red Blood Count 5.40, Hemoglobin 16.4, Hematocrit 48, Mean Corpuscular Volume 88, Mean Corpuscular Hemoglobin 30, Mean Corpuscular Hemoglobin Concent 35, Red Cell Distribution Width 13.0, Platelet Count 220, Mean Platelet Volume 10.0, Neutrophils (%) (Auto) 62, Lymphocytes (%) (Auto) 25, Monocytes (%) (Auto) 9, Eosinophils (%) (Auto) 4, Basophils (%) (Auto) 0, Neutrophils # (Auto) 5.8, Lymphocytes # (Auto) 2.3, Monocytes # (Auto) 0.8, Eosinophils # (Auto) 0.4H, Basophils # (Auto) 0.0 02/01/20 18:00: Prothrombin Time 15.7H, INR Comment 1.2, Activated Partial Thromboplast Time 28, Sodium Level 138, Potassium Level 4.0, Chloride Level 107, Carbon Dioxide Level 25, Anion Gap 6, Blood Urea Nitrogen 14, Creatinine 0.83, Estimat Glomerular Filtration Rate > 60, BUN/Creatinine Ratio 17, Glucose Level 118H, Calcium Level 8.8, Corrected Calcium 9.0, Magnesium Level 1.8, Total Bilirubin 0.2, Aspartate Amino Transf (AST/SGOT) 32, Alanine Aminotransferase (ALT/SGPT) 23, Alkaline Phosphatase 47, Myoglobin 162.6H, Troponin I 2.738*H, Total Protein 6.0L, Albumin 3.8 02/02/20 02:58: White Blood Count 10.3, Red Blood Count 5.37, Hemoglobin 16.1, Hematocrit 48, Mean Corpuscular Volume 89, Mean Corpuscular Hemoglobin 30, Mean Corpuscular Hemoglobin Concent 34, Red Cell Distribution Width 12.9, Platelet Count 218, Mean Platelet Volume 10.1, Neutrophils (%) (Auto) 89H, Lymphocytes (%) (Auto) 9L , Monocytes (%) (Auto) 2, Eosinophils (%) (Auto) 0, Basophils (%) (Auto) 0, Neutrophils # (Auto) 9.2H, Lymphocytes # (Auto) 0.9L, Monocytes # (Auto) 0.2, Eosinophils # (Auto) 0.0, Basophils # (Auto) 0.0, Sodium Level 139, Potassium Le obed 4.4, Chloride Level 107, Carbon Dioxide Level 22, Anion Gap 10, Blood Urea Nitrogen 12, Creatinine 0.86, Estimat Glomerular Filtration Rate > 60, BUN/Creatinine Ratio 14, Glucose Level 164H, Calcium Level 9.5, Corrected Calcium 9.6, Magnesium Level 1.9, Total Bilirubin 0.4, Aspartate Amino Transf (AST/SGOT) 49H, Alanine Aminotransferase (ALT/SGPT) 29, Alkaline Phosphatase 49, Total Protein 6.5, Albumin 3.9, Neutrophils % (Manual) 86, Lymphocytes % (M anual) 10, Monocytes % (Manual) 0, Eosinophils % (Manual) 0, Band Neutrophils 0, Reactive Lymphocytes 4, Blood Morphology Comment NORMAL, Phosphorus Level 2.2L, Triglycerides Level 76, Cholesterol Level 199, LDL Cholesterol Direct 171H, VLDL Cholesterol 15, HDL Cholesterol 41, Thyroid Stimulating Hormone (TSH) 0.66 Laboratory Tests 02/01/20 17:40 02/01/20 18:00 02/02/20 02:58 A/P: Assessment: Ac NSTEMI, treated with primary PCI. Card cath of 02-01-20: long up to 95% stenosis in the first obtuse marginal of the left circumflex artery to which successful stenting was carried out with Xience Christina 2.5 x 38 mm stent. The rest of the coronary vessels have diffuse disease. Left anterior descending artery has up to 50% proximal and mid vessel stenosis. Ramus intermedius has 50% ostial and proximal stenosis. Normal global left ventricular systolic function with ejection fraction approximately 60%. Elevated left ventricular end-diastolic pressure H/o hypertension H/o hyperlipidemia Chronic back pain, s/p lumbosacral surgery in the with subsequent loss of sensations in the legs Plan: * I discussed his CV issues, cath findings, and interventions undertaken * Continue current medications including ASA, Plavix, statin, BB * Discussed medications and rationale * Advised cardiac rehab - agreeable - will refer at discharge * Increase ambulation Clinical Quality Measures AMI/AHF: ASA po Prior to arrival: OMEGA Hackett MD FACP [facility] Feb 02, 2020 13:22
--- NOTE | 2020-02-02 14:45 | Physical Therapy Evaluation ---
PT Evaluation-General Medical Diagnosis Admission Date Feb 01, 2020 at 20:28 Medical Diagnosis: PR Onset Date: Feb 01, 2020 Therapy Diagnosis Therapy Diagnosis: independent with mobility Precautions Precautions/Isolations: Standard Precautions Referral Physician: Moise Reason for Referral: Evaluation/Treatment Medical History Pertinent Medical History: HTN, Smoking Reviewed History: Yes Social History Home: Single Level Current Living Status: Spouse Entry Into Home: Stairs With Railing PT Steps Into Home: 3 Prior Prior Level of Function SCALE: Activities may be completed with or without assistive devices. 8-[id number]-[id number] completes the activity by him/herself with no assistance from a helper. 5-Set-up or Clean-up Assistance-helper sets up or cleans up; patient completes activity. [place] assists only prior to or following the activity. 4-Supervision or Touching Assistance-helper provides verbal cues and/or touching/steadying and/or contact guard assistance as patient completes activity. Assistance may be provided throughout the activity or intermittently. 3-Partial/Moderate Assistance-helper does LESS THAN HALF the effort. [place] lifts, holds or supports trunk or limbs, but provides less than half the effort. 2-Substantial/Maximal Assistance-helper does MORE THAN HALF the effort. [place] lifts or holds trunk or limbs and provides more than half the effort. 1-Hdshixsem-ifmdbh does ALL the effort. Patient does none of the effort to complete the activity. Or, the assistance of 2 or more helpers is required for the patient to complete the activity. If activity was not attempted, code reason: 7-Patient Refused. 9-Not Applicable-not attempted and the patient did not perform the activity before the current illness, exacerbation or injury. 10-Not Attempted due to Environmental Limitations-(lack of equipment, weather restraints, etc.). 88-Not Attempted due to Medical Conditions or Safety Concerns. Bed Mobility: 6 Transfers (B,C,W/C): 6 Gait: 6 Stairs: 6 Indoor Mobility (Ambulation): Independent Stairs: Independent PT Evaluation-Current Subjective Patient in bed pre tx, agrees to PT, has no complaints of pain. Patient has had a back surgery years ago with resulting decreased sensation in both legs. Pt/Family Goals "to go home" Objective Patient Orientation: Normal For Age ROM/Strength ROM Lower Extremities WNL Strength Lower Extremities 5/5 gross BLE Sensory Vision: Wears Glasses Hearing: Functional Sensation Right Lower Extremit: Impaired Sensation Left Lower Extremity: Impaired Sensation Lower Extremities Patient does have areas of intact light touch sensation. Transfers Roll Left to Right (QC): 6 Sit to Lying (QC): 6 Lying to Sitting/Side of Bed(Q: 6 Sit to Stand (QC): 6 Chair/Bmo-gc-Femly Xfer(QC): 6 Gait Does the Patient Walk?: Yes Mode of Locomotion: Walk Anticipated Mode of Locomotion: Walk Walk 10 feet (QC): 6 Walk 50 ft with 2 Turns(QC): 6 Walk 150 ft (QC): 6 Distance: 500' Gait Assistive Device: None Comments/Gait Description Patient ambulates independently, no LOB or unsteadiness during ambulation. Patient did mention that he does have impaired balance due to his decreased sensation in his legs and has occasional falls at home but ambulates in the hospital normally. Balance Sitting Static: Normal Sitting Dynamic: Normal Standing Static: Normal Standing Dynamic: Normal Assessment/Needs Patient is independent with functional mobility. Recommended nurse put him on portable telemetry and patient ambulate by himself several times a day. Rehab Potential: Good PT Plan Treatment/Plan Treatment Plan: Discontinue PT Treatment Duration: Feb 02, 2020 Frequency: Patient and/or Family Agrees t: Yes Safety Risks/Education Patient Education: Gait Training, Safety Issues Teaching Recipient: Patient Teaching Methods: Demonstration, Discussion Response to Teaching: Reinforcement Needed Discharge Recommendations Plan DC Therapy Discharge Recommendati: Home & Family Time/GCodes Time In: 1423 Time Out: 1435 Total Billed Treatment Time: 12 Total Billed Treatment 1 visit TIM MAGALLANES PT Feb 02, 2020 14:45
[2020-02-02] MEDS ORDERED: MTP25TSR PO (16:33)
[2020-02-02] MEDS ORDERED: ASPI-999 PO (16:33)
[2020-02-02] MEDS ORDERED: ATOR40TA PO (16:33)
[2020-02-02] MEDS ORDERED: CLOP75TA28 PO (16:33)
--- NOTE | 2020-02-02 16:34 | Discharge Inst-Cardiology ---
Discharge Inst-Cardiac Discharge Medications New Medications: Aspirin (Aspirin) 81 Mg Tab.chew 81 MG PO DAILY, #30 TAB 5 Refills Atorvastatin Calcium (Lipitor) 40 Mg Tablet 40 MG PO HS, #30 TAB 5 Refills Clopidogrel Bisulfate (Clopidogrel) 75 Mg Tablet 75 MG PO DAILY, #30 TAB 5 Refills Metoprolol Succinate (Metoprolol Succinate) 25 Mg Tab.er.24h 25 MG PO DAILY, #30 TAB 5 Refills New, Converted or Re-Newed RX: Transmitted to Pharmacy Patient Instructions Patient Instructions: Please schedule follow up appointment to see Dr. Phipps next week RON PETERSON Feb 02, 2020 16:34
--- NOTE | 2020-02-02 16:40 | Cardiology Discharge Summary ---
Diagnosis/Chief Complaint Date of Admission Feb 01, 2020 at 20:28 Date of Discharge February 02, 2020 Admission Diagnosis Ac NSTEMI H/o hypertension H/o hyperlipidemia Chronic back pain, s/p lumbosacral surgery in the with subsequent loss of sensations in the legs Final/Discharge Diagnosis Ac NSTEMI, treated with primary PCI. Card cath of 02-01-20: long up to 95% stenosis in the first obtuse marginal of the left circumflex artery to which successful stenting was carried out with Xience Christina 2.5 x 38 mm stent. The rest of the coronary vessels have diffuse disease. Left anterior descending ar mackenzie has up to 50% proximal and mid vessel stenosis. Ramus intermedius has 50% ostial and proximal stenosis. Normal global left ventricular systolic function with ejection fraction approximately 60%. Elevated left ventricular end- diastolic pressure H/o hypertension H/o hyperlipidemia Chronic back pain, s/p lumbosacral surgery in the with subsequent loss of sensations in the legs Chief Complaint/HPI Chief Complaint/HPI CC: Chest pain HPI; 59 yo man with chest pain: sarted on 01/30/20, off an on, lasting several hours at a time, mild to severe, sometimes associated with diaphoresis or nausea, mid sternal, several times a day, w/o aggravating factors, helped with iv morphine in the ER, not experienced before, radiating to both shoulders. Denies shortness of breath or palp or syncope or leg swelling Chronic, bilat leg weakness and numbness and paresthesia Chronic low back pain Discharge Summary Procedures Cardiac cath with successful intervention on February 01, 2020. Please refer to cardiac cath for details. Discharge Physical Examination As per progress note of February 02, 2020 Hospital Course Labs Laboratory Tests 02/01/20 17:40 02/01/20 18:00 02/02/20 02:58 Discussion & Recommendations Discussion Continue current medications including ASA, Plavix, statin, BB Discussed medications and rationale Advised cardiac rehab - agreeable - will refer at discharge Risk factor modification advised including smoking cessation Follow up appt.: One week f/u appt Home Medications New Medications: Aspirin (Aspirin) 81 Mg Tab.chew 81 MG PO DAILY, #30 TAB 5 Refills Atorvastatin Calcium (Lipitor) 40 Mg Tablet 40 MG PO HS, #30 TAB 5 Refills Clopidogrel Bisulfate (Clopidogrel) 75 Mg Tablet 75 MG PO DAILY, #30 TAB 5 Refills Metoprolol Succinate (Metoprolol Succinate) 25 Mg Tab.er.24h 25 MG PO DAILY, #30 TAB 5 Refills Discharge Home Medications: Reviewed and agree with Discharge Medication list on patient's Discharge Instruction sheet Clinical Quality Measures AMI/AHF: ASA po Prior to arrival: No DVT/VTE Risk/Contraindication: Risk Factor Score Per Nursin RFS Level Per Nursing on Admit: 4+=Very High RON PETERSON Feb 02, 2020 16:40
[2020-02-03] MEDS ORDERED: NICOTINE PATCH REMOVAL TP SCH (09:00)
== END 2020-02-02 17:25 | disposition home or self-care (01) | DRG 247 ==
LOC: EDUNIT# 17:30 → ER 17:32 → CATH 19:30 → ICU 20:28
PROVIDERS: ADMIT Internal Medicine Cardiovascular Disease; ATTEND Internal Medicine Cardiovascular Disease
PROC: 027034Z Dilation of Coronary Artery, One Artery with Drug-eluting Intraluminal Device, Percutaneous Approach (ICD-10-PCS; principal; 2020-02-01)
PROC: 4A023N7 Measurement of Cardiac Sampling and Pressure, Left Heart, Percutaneous Approach (ICD-10-PCS; 2020-02-01)
PROC: B2151ZZ Fluoroscopy of Left Heart using Low Osmolar Contrast (ICD-10-PCS; 2020-02-01)
PROC: B2111ZZ Fluoroscopy of Multiple Coronary Arteries using Low Osmolar Contrast (ICD-10-PCS; 2020-02-01)
DX: I21.4 Non-ST elevation (NSTEMI) myocardial infarction (principal); I10 Essential (primary) hypertension; E78.5 Hyperlipidemia, unspecified; I25.10 Atherosclerotic heart disease of native coronary artery without angina pectoris; M54.5 Low back pain; G89.29 Other chronic pain; F17.210 Nicotine dependence, cigarettes, uncomplicated
CPT/HCPCS: 36415; 71045; 80053; 80061; 83735; 83874; 84100; 84443; 84484; 85007; 85025; 85027; 85610; 85730; 87081; 93005; 93041; 93306; 93458